=== PATIENT | female | born 1955 | race Hispanic/Latino ===

== ENCOUNTER → 2018-04-29 | Outpatient (CLI) | payer OTHER ==
[~2018-04-29] MED LIST: ANAPROX DS550 MG PO; CYMBALTA30 MG PO; DITROPAN XL10 MG PO; FORTAMET500 MG PO; PRAVASTATIN SOD20 MG PO
--- NOTE | 2018-04-29 09:34 | Diagnostic Imaging Report ---
EXAMINATION: CHEST 2 VIEWS INDICATION: Cough. COMPARISON: None FINDINGS: TUBES and LINES: None. LUNGS: Low lung volumes. There is moderate elevation of the right hemidiaphragm. There are patchy opacities at the right lung base. No evidence of pulmonary edema. PLEURA: No pleural effusion or pneumothorax. HEART AND MEDIASTINUM: The cardiomediastinal silhouette is unremarkable. BONES AND SOFT TISSUES: No acute osseous lesion. Soft tissues are unremarkable. UPPER ABDOMEN: No free air under the diaphragm. IMPRESSION: Low lung volumes with moderate elevation of the right hemidiaphragm. Diaphragmatic fluoroscopy is suggested to exclude underlying phrenic nerve palsy. Patchy opacities in the right lung base likely reflect atelectasis. Pneumonia is possible in the appropriate clinical setting. Signed by: Dr. Ani Ruvalcaba MD on 04/29/2018 9:31 AM
== END ==
LOC: RAD 09:01
PROVIDERS: ATTEND Internal Medicine
DX: R05 Cough (principal)
CPT/HCPCS: 71046

== ENCOUNTER 2018-05-02 12:50 | Emergency (ER) | payer OTHER ==
[~2018-05-02] VITALS: Ht 160 cm; Wt 108.9 kg
--- OUTSIDE RECORDS SUMMARY | 2018-05-02 12:53 | XMS REPORT ---
Author [facility] Address Unknown Phone Unavailable Care Team Providers Care Manager Trade Name Role Phone NAZARIO GILBERT Unavailable Unavailable Payers Payer Name Policy Type Policy Number Effective Date Expiration Date Problems This patient has no known problems. Allergies, Adverse Reactions, Alerts Allergy Name Allergy Type Status Severity Reaction(s) Onset Date Inactive Date Treating Clinician Comments Sulfa (Sulfonamide Antibiotics) DA Active [place] 2013-02-24 00:00:00 Medications This patient has no known medications. Results Test Description Test Time Test Comments Text Results Atomic Results Result Comments CHEST 2 VIEWS 2018-04-29 09:28:00 [place] [id number] Patient Name: BEN GARCIA MR #: [id number] : 1955 Age/Sex: 62/F Req #: [id number] Adm Physician: Ordered by: NAZARIO GILBERT MD Report #: [id number] Location: [facility] Room/Bed: Procedure: [id number] DX/CHEST 2 VIEWS Exam Date: 04/29/18 Exam Time: 0900 REPORT STATUS: Signed EXAMINATION: CHEST 2 VIEWS INDICATION: Cough. COMPARISON: None FINDINGS: TUBES and LINES: None. LUNGS: Low lung volumes. There is moderate elevation of the right hemidiaphragm. There are patchy opacities at the right lung base. No evidence of pulmonary edema. PLEURA: No pleural effusion or pneumothorax. HEART AND MEDIASTINUM: The cardiomediastinal silhouette is unremarkable. BONES AND SOFT TISSU ES: No acute osseous lesion. Soft tissues are unremarkable. UPPER ABDOMEN: No free air under the diaphragm. IMPRESSION: Low lung volumes with moderate elevation of the right hemidiaphragm. Diaphragmatic fluoroscopy is suggested to exclude underlying phrenic nerve palsy. Patchy opacities in the right lung base likely reflect atelectasis. Pneumonia is possible in the appropriate clinical setting. Signed by: Dr. Stephani Patiño MD on 04/29/2018 9:31 AM Dictated By: STEPHANI PATIÑO MD 0 Transcribed By: KIRILL on 04/29/18930 COPY TO: NAZARIO GILBERT MD
[2018-05-02] MEDS ORDERED: ONDANSETRON HCL INJ 2MG/ML 2ML 2 MG/ML VIAL IV STA (13:00)
[2018-05-02] MEDS ORDERED: SODIUM CHLORIDE 0.9% 1000ML 1,000 ML IV SCH (13:00)
[2018-05-02] MEDS ORDERED: KETOROLAC TROMETHAMINE 30 MG/ML VIAL IV STA ×2 (13:00→15:31)
[2018-05-02] MEDS ORDERED: CEFTRIAXONE SOD 1 GM/NS 50 ML 50 ML IV ONE (13:15)
[2018-05-02] MEDS ORDERED: BENZONATATE100 MG PO (13:16)
[2018-05-02] MEDS ORDERED: LOSARTAN POTASS25 MG PO (13:16)
[2018-05-02] MEDS ORDERED: METFORMIN HCL500 MG PO (13:16)
[2018-05-02] MEDS ORDERED: GLIMEPIRIDE2 MG PO (13:16)
[2018-05-02] MEDS ORDERED: ACETAMINOPHEN PO (13:16)
[2018-05-02] MEDS ORDERED: TROSPIUM CHLORI20 MG PO (13:16)
[2018-05-02] MEDS ORDERED: ASPIR 8181 MG PO (13:16)
[2018-05-02] MEDS ORDERED: GABAPENTIN400 MG PO (13:16)
[2018-05-02] MEDS ORDERED: MELOXICAM7.5 MG PO (13:16)
[2018-05-02] MEDS ORDERED: CYMBALTA30 MG PO (13:16)
[2018-05-02] MEDS ORDERED: ATORVASTATIN CA10 MG PO (13:16)
[2018-05-02] MEDS ORDERED: LEVAQUIN500 MG PO (13:16)
--- NOTE | 2018-05-02 13:46 | Diagnostic Imaging Report ---
EXAMINATION: PA and lateral views of the chest. COMPARISON: None CLINICAL HISTORY: Shortness of breath, cough DISCUSSION: Lines/tubes: None. Lungs: Right lower lung linear atelectasis. No consolidation Pleura: No pleural effusion or pneumothorax. Heart and mediastinum: The cardiomediastinal silhouette is normal. Bones and soft tissues: No acute bony abnormalities. IMPRESSION: No acute cardiopulmonary abnormalities. Signed by: Dr. Luis Carlos Armendariz M.D. on 05/02/2018 1:43 PM
[2018-05-02 13:57] LABS: BASOPHILS % 0.3 % (0.0-1.0); EOSINOPHILS # (AUTO) 0.1 (0.0-0.4); EOSINOPHILS % 0.9 % (0.0-6.0); HEMATOCRIT 38.5 % (34.2-44.1); HEMOGLOBIN 13.2 g/dL (12.0-16.0); LYMPHOCYTES # (AUTO) 2.4 (1.0-3.2); LYMPHOCYTES % 35.6 % (18.0-39.1); MEAN CORPUSCULAR HEMOGLOBIN 29.8 pg (28-32); MEAN CORPUSCULAR HGB CONC 34.3 g/dL (31-35); MEAN CORPUSCULAR VOLUME 86.9 fL (81-99); MONOCYTES # (AUTO) 0.5 (0.2-0.8); MONOCYTES % 7.1 % (4.4-11.3); NEUTROPHILS # (AUTO) 3.7 (2.1-6.9); NEUTROPHILS % 55.5 % (38.7-80.0); PLATELET COUNT 241 x10e3/uL (140-360); RED BLOOD COUNT 4.43 x10e6/uL (3.6-5.1); RED CELL DISTRIBUTION WIDTH 13.4 % (11.7-14.4)
[2018-05-02 14:15] LABS: ALANINE AMINOTRANSFERASE 33 IU/L (0-55); ALBUMIN 3.6 g/dL (3.5-5.0); ALBUMIN/GLOBULIN RATIO 1.2 (0.8-2.0); ALKALINE PHOSPHATASE 67 IU/L (40-150); ANION GAP 16.2 mmol/L (8-16); BLOOD UREA NITROGEN 14 mg/dL (7-26); BUN/CREATININE RATIO 18 (6-25); CARBON DIOXIDE 24 mmol/L (22-29); CHLORIDE 102 mmol/L (98-107); CREATININE, SERUM 0.77 mg/dL (0.57-1.11); EST GLOMERULAR FILTRATION RATE > 60 ML/MIN (60-); GLUCOSE 135 mg/dL (74-118); POTASSIUM 3.2 mmol/L (3.5-5.1); SODIUM 139 mmol/L (136-145)
[2018-05-02 14:25] LABS: BILIRUBIN,URINE NEGATIVE (NEGATIVE); CLARITY,URINE SL CLOUDY (CLEAR); COLOR,URINE YELLOW (YELLOW); KETONES,URINE NEGATIVE (NEGATIVE); LEUKOCYTE ESTERASE ,URINE NEGATIVE (NEGATIVE); NITRITE,URINE NEGATIVE (NEGATIVE); PROTEIN,URINE DIPSTICK 1+ (NEGATIVE); URINE UROBILINOGEN 0.2 mg/dL (0.2 - 1)
[2018-05-02 14:37] LABS: BACTERIA,URINE FEW /HPF; EPITHELIAL CELLS,URINE MODERATE /LPF; MUCUS,URINE MANY (RARE); RBC,URINE 0-5 /HPF (0-5)
[2018-05-02] MEDS ORDERED: POTASSIUM CHLORIDE 10MEQ EA PO ONE (15:30)
[2018-05-02] MEDS ORDERED: HYDROCODONE/CHLORPHENIRAMINE 5 ML LIQCR PO ONE (15:45)
[2018-05-02 16:45] VITALS: BP 138/81
--- NOTE | 2018-05-02 16:51 | NUR ---
PT REPORTS THAT JEFF BARBOSA DO NOT WORK FOR HER. SHE IS REQUESTING THE LIQUID MEDICATION GIVEN TO HER TODAY DURING ED VISIT.
--- NOTE | 2018-05-02 17:10 | NUR ---
Roddy rondon in [facility] - 05/02/18 at 1711 by CHEYENNE BIPAP /; RATE 16; 50% FIO2
== END 2018-05-02 17:28 | disposition home or self-care (01) ==
LOC: ER 12:50
DX: R50.9 Fever, unspecified (principal); R05 Cough; J02.9 Acute pharyngitis, unspecified; K52.9 Noninfective gastroenteritis and colitis, unspecified; E87.6 Hypokalemia
CPT/HCPCS: 36415; 71046; 80053; 81001; 85025; 87400; 99284; J0696; J1885; J2405; J7030